=== PATIENT | male | born 1985 | race Caucasian/White ===

== ENCOUNTER 2017-08-16 13:31 | Emergency (ER) | payer OTHER ==
[2017-08-16 13:48] VITALS: BP 130/67; PULSE 99; RESP 16; TEMP 98.3; O2SAT 98
--- NOTE | 2017-08-16 14:23 | ED PDOC ---
HPI: Chest Pain Time Seen by Provider: 08/16/17 13:52 Chief Complaint (Nursing): Chest Pain Chief Complaint (Provider): Chest Pain History Per: Patient History/Exam Limitations: no limitations Onset/Duration Of Symptoms: Days (x6) Current Symptoms Are (Timing): Still Present Additional Complaint(s): 32 y/o male with no significant pmh presents to the ED for evaluation of chest discomfort x 6 days. Patient states on Monday he was bent over moving a heavy tarp when he "felt something pop" in his chest and began to feel discomfort. He also states that on Monday he was playing [email or web address] and running downhill when he ran into a tree which struck his chest. He reports pain with any movement of torso and with deep inspiration. He also reports taking Ibuprofen today at 06: 30 with mild relief of symptoms. PMD: none Past Medical History Reviewed: Historical Data, Nursing Documentation, Vital Signs Vital Signs: Last Vital Signs Temp 98.3 F 08/16/17 13:44 Pulse 99 H 08/16/17 13:44 Resp 16 08/16/17 13:44 BP 130/67 08/16/17 13:44 Pulse Ox 98 08/16/17 15:00 - Medical History PMH: No Chronic Diseases - Surgical History Surgical History: Hernia Repair (as child) - Family History Family History: States: No Known Family Hx - Living Arrangements Living Arrangements: With Family - Social History Current smoker - smoking cessation education provided: Yes (on occasion) Alcohol: Occasional Drugs: Denies - Home Medications Home Medications: Ambulatory Orders Medication Instructions Recorded Cyclobenzaprine [Cyclobenzaprine 10 mg PO TID PRN #20 tab 08/16/17 HCl] Naproxen [Naprosyn] 500 mg PO BID #20 tab 08/16/17 traMADol [Ultram] 50 mg PO TID PRN #15 tab 08/16/17 - Allergies Allergies/Adverse Reactions: Allergies Allergy/AdvReac Type Severity Reaction Status Date / Time No Known Allergies Allergy Verified 08/16/17 13:48 OFE Risk Score for UA/NSTEMI - OFE Risk Score Age > 64: NO 3 or more CAD Risk Factors: NO Known CAD (Stenosis greater than 50%): NO Aspirin use in past 7 days: NO Severe Angina: NO EKG ST changes greater than 0.5mm: NO Positive Cardiac Marker: NO OFE Score: 0 Risk %: 5% Review of Systems ROS Statement: Except As Marked, All Systems Reviewed And Found Negative Cardiovascular: Positive for: Other (chest discomfort s/p injury) Respiratory: Negative for: Cough, Shortness of Breath, Hemoptysis Gastrointestinal: Negative for: Nausea, Vomiting Physical Exam - Reviewed Nursing Documentation Reviewed: Yes Vital Signs Reviewed: Yes - Physical Exam Appears: Positive for: Well, Non-toxic, No Acute Distress Head Exam: Positive for: ATRAUMATIC, NORMAL INSPECTION, NORMOCEPHALIC Skin: Positive for: Normal Color. Negative for: Rash Eye Exam: Positive for: Normal appearance Cardiovascular/Chest: Positive for: Regular Rate, Rhythm. Negative for: Chest Non Tender (diffuse tenderness to the anterior chest wall, no bony deformity, no ecchymosis, no soft tissue swelling) Respiratory: Positive for: Normal Breath Sounds. Negative for: Wheezing, Respiratory Distress Gastrointestinal/Abdominal: Positive for: Soft. Negative for: Tenderness, Distended, Guarding, Rebound Back: Positive for: Normal Inspection. Negative for: L CVA Tenderness, R CVA Tenderness Extremity: Positive for: Normal ROM Neurologic/Psych: Positive for: Alert, Oriented - ECG Interpretation Of ECG: NSR 91 bpm, no acute changes, reviewed by PA and ED attending O2 Sat by Pulse Oximetry: 98 (RA) Pulse Ox Interpretation: Normal - Other Rad CXR and sternum x-ray X-Ray: Interpreted by Me, Viewed By Me X-Ray Interpretation: no acute finding Medical Decision Making Medical Decision Makin:15 Initial Impression:32 y/o male with injury to chest Plan: --Chest X-Ray 2 views --Sternum X-Ray --EKG --Toradol 30mg IM --Tylenol 975mg PO --Ultram 50mg PO --Incentive spirometer --Reevaluation Patient feels better after meds given. Incentive spirometer given. Rx naprosyn , flexeril and tramadol given. Advised rest and follow up with PMD or clinic. Scribe Attestation: Documented by Armaan Eli, acting as a scribe for Shirley Buchanan PA-C. Provider Scribe Attestation: All medical record entries made by the Scribe were at my direction and personally dictated by me. I have reviewed the chart and agree that the record accurately reflects my personal performance of the history, physical exam, medical decision making, and the department course for this patient. I have also personally directed, reviewed, and agree with the discharge instructions and disposition. Disposition - Clinical Impression Clinical Impression: Chest wall contusion - Patient ED Disposition Is Patient to be Admitted: No Counseled Patient/Family Regarding: Studies Performed, Diagnosis, Need For Followup, Rx Given - Disposition Referrals: [facility] [Outside] Disposition: Routine/Home Disposition Time: 14:57 Condition: STABLE Additional Instructions: Take rx meds as directed as needed for pain. Use incentive spirometer as directed. Rest and avoid heavy lifting. Follow up with primary care doctor or with clinic for any persistent symptoms. Prescriptions: Cyclobenzaprine [Cyclobenzaprine HCl] 10 mg PO TID PRN #20 tab PRN Reason: Muscle Spasm Naproxen [Naprosyn] 500 mg PO BID #20 tab traMADol [Ultram] 50 mg PO TID PRN #15 tab PRN Reason: Pain, Moderate (4-7) Instructions: Chest Pain That Is Not Caused by the Heart (DC), Contusion (DC), How to Use an Incentive Spirometer Forms: [employer] ([place]), [facility] ED School/Work Excuse
--- NOTE | 2017-08-16 14:36 | RAD ---
HISTORY: Cough COMPARISON: Correlation made with concurrent radiographs of the sternum. TECHNIQUE: Chest PA and lateral FINDINGS: LUNGS: . Lung guidry clear without focal consolidation. PLEURA: Minor biapical pleural thickening. No significant Pleural effusion identified. No pneumothorax apparent. CARDIOVASCULAR: Normal. OSSEOUS STRUCTURES: No significant abnormalities. VISUALIZED UPPER ABDOMEN: Normal. OTHER FINDINGS: None. IMPRESSION: No acute infiltrates. Minor biapical pleural thickening.
--- NOTE | 2017-08-16 14:47 | RAD ---
PROCEDURE: Sternum dated 08/16/2017. HISTORY: Trauma COMPARISON: Correlation made with concurrent radiographs of the chest TECHNIQUE: Two views of the sternum performed. FINDINGS: Current study reveals no definitive evidence of acute displaced sternal fracture. Note however that the sternum is not well delineated on this exam If symptoms persist or occult fracture suspected clinically consider followup CT scan of the chest if further evaluation is required. Minor biapical pleural thickening again noted. IMPRESSION: No definitive evidence of acute displaced sternal fracture. See above discussion for additional details.
== END 2017-08-16 15:12 | disposition home or self-care (01) ==
LOC: H.ER 13:31
DX: S20.219A Contusion of unspecified front wall of thorax, initial encounter (principal); X50.9XXA Other and unspecified overexertion or strenuous movements or postures, initial encounter; Y92.89 Other specified places as the place of occurrence of the external cause
CPT/HCPCS: 71046; 71120; 96372; 99282; J1885